=== PATIENT | male | born 1935 | race Caucasian/White ===

== ENCOUNTER 2017-06-13 17:57 | Emergency (ER) | payer MEDICARE ==
[~2017-06-13] VITALS: Ht 180.3 cm; Wt 108.9 kg
[~2017-06-13 17:57] MED LIST: ALBUTEROL0.09 MG/A2 IH; ALBUTEROL2.5 MG/0.5 INH; AMBIEN5 MG PO; AMLODIPINE BESY10 MG PO; AMOXICILLIN500 MG PO; ASMANEX220 MCG INH; ASPIRIN81 M1 PO; ATROVENT I0.5 MG/2.5 INH; AVIDOXY100 MG PO; BACTROBAN OINT22 GM PO; CEFTIN500 MG PO; CITRATE OF1.75 GM/30 PO; CRESTOR20 MG PO; DELTASONE10 MG PO; DOXYCYCLINE100 M3 PO; Duoneb 3ML 3 MG/3 ML INH; FLONASE0.05 MG/AC NS; GLYBURIDE5 MG PO; GUAFENESIN400 MG PO; KEFLEX500 MG PO; LEVAQUIN500 M2 PO; LIPITOR80 MG PO; MEDROL DOSEPAK4 MG PO; MUCINEX DM 30 M1 TE1 PO; NOVOLOG1 UNIT/0.0 SC; OMEPRAZOLE20 M1 PO; OMEPRAZOLE20 MG PO; PREDNISONE10 MG PO; PREDNISONE20 MG PO; PROVENTIL0.09 MG/A1; SIMVASTATIN20 MG PO; SPIRIVA18 MCG PO; STERAPRED DS10 MG PO; SYMBICORT1 AE1 IH; SYMBICORT1 AE1 INH; TAMSULOSIN HYD0.4 MG PO; TERAZOSIN HCL10 M1 PO; VENTOLIN 02.5 MG/3 M INH; VIBRAMYCIN100 MG PO; VICODIN 5/500 505 MG PO; ZITHROMAX Z PA250 MG PO
== END 2017-06-13 18:35 | disposition home or self-care (01) ==
LOC: ED 17:57
DX: T44.7X1A Poisoning by beta-adrenoreceptor antagonists, accidental (unintentional), initial encounter (principal); Y92.128 Other place in nursing home as the place of occurrence of the external cause; Z86.73 Personal history of transient ischemic attack (TIA), and cerebral infarction without residual deficits

== ENCOUNTER 2017-08-11 13:04 | Emergency (ER) | payer MEDICARE ==
[~2017-08-11] VITALS: Ht 180.3 cm; Wt 99.8 kg
[2017-08-11 13:16] VITALS: BP 151/60
[2017-08-11] MEDS ORDERED: DOK100 MG PO (13:53)
[2017-08-11] MEDS ORDERED: COREG12.5 M1 PO (13:53)
[2017-08-11] MEDS ORDERED: NEURONTIN300 MG PO (13:54)
[2017-08-11] MEDS ORDERED: HYDRALAZINE HC100 MG PO (13:54)
[2017-08-11] MEDS ORDERED: HUMALOG100 UNIT/2 SQ (13:55)
[2017-08-11] MEDS ORDERED: ALTACE10 MG PO (13:55)
[2017-08-11] MEDS ORDERED: CETIRIZINE HYDR10 M1 PO (13:56)
[2017-08-11] MEDS ORDERED: AMLODIPINE BESY10 MG PO (13:56)
[2017-08-11] MEDS ORDERED: CLOPIDOGREL75 MG PO (13:57)
[2017-08-11] MEDS ORDERED: LANTUS SOL100 UNIT/1 SC (13:57)
[2017-08-11] MEDS ORDERED: LEXAPRO20 MG PO (13:57)
[2017-08-11] MEDS ORDERED: XALATAN 0.005%2.5 ML OU (13:58)
[2017-08-11] MEDS ORDERED: KEPPRA250 MG PO (13:59)
[2017-08-11] MEDS ORDERED: NIFEDIPINE ER60 M1 PO (13:59)
[2017-08-11] MEDS ORDERED: CRESTOR5 MG PO (14:00)
[2017-08-11 14:19] LABS: BASO # 0.1 10*3/uL (0.0-0.1); EOS # 0.2 10*3/uL (0.0-0.4); EOS % 2.7 % (1.0-4.0); HEMATOCRIT 45.9 % (42.0-52.0); HEMOGLOBIN 15.3 g/dl (14.0-18.0); LYMPH % 12.7 % (27.0-41.0); MEAN CELL VOLUME 89.3 fl (80.0-94.0); MEAN CORPUSCULAR HGB 29.8 pg (27.0-31.0); MEAN CORPUSCULAR HGB CONC 33.3 g/dl (33.0-37.0); MEAN PLATELET VOLUME 10.6 fl (9.6-12.3); MONO # 0.5 10*3/uL (0.1-1.0); MONO % 6.5 % (3.0-9.0); NEUT % 76.8 % (47.0-73.0); PLATELET COUNT AUTOMATED 437 10*3/uL (130-400); RED BLOOD COUNT 5.14 10*6/uL (4.50-5.90); RED CELL DISTRI WIDTH 14.8 % (0-14.5); WHITE BLOOD COUNT 7.8 10*3/uL (4.8-10.8)
[2017-08-11 14:37] LABS: ALBUMIN 3.5 gm/dl (3.1-4.5); ALKALINE PHOSPHATASE 44 U/L (45-117); BUN 15 mg/dl (7-24); CHLORIDE 106 mmol/L (98-107); CREATININE 1.06 mg/dL (0.70-1.30); POTASSIUM 4.2 mmol/L (3.5-5.1); SGOT/AST 15 IU/L (3-35); SGPT/ALT 26 U/L (12-78); SODIUM 142 mmol/L (136-145); TOTAL PROTEIN 6.7 gm/dL (6.4-8.2)
[2017-08-11 14:38] LABS: TROPONIN I < 0.015 ng/ml (<0.045)
[2017-08-11 15:15] LABS: BILIRUBIN NEGATIVE (NEGATIVE); BLOOD NEGATIVE (NEGATIVE); CLARITY CLEAR (CLEAR); COLOR YELLOW (YELLOW); GLUCOSE TRACE (NEGATIVE); KETONE TRACE (NEGATIVE); LEUKO ESTERASE 1+ (NEGATIVE); NITRITE NEGATIVE (NEGATIVE); PH 5.5 (5.0-9.0); SPECIFIC GRAVITY 1.025 (1.005-1.030); UROBILINOGEN 0.2 E.U./dl (0.2-1.0)
[2017-08-11 15:33] LABS: BACTERIA 2+; EPITHELIAL CELLS 0-2; MUCOUS 1+; RBC 0-2 rbc/hpf (0-2)
[2017-08-11] MEDS ORDERED: SEPTDS PO (17:14)
== END 2017-08-11 20:36 | disposition home or self-care (01) ==
LOC: ED 13:04
PROVIDERS: Emergency Medicine
DX: N39.0 Urinary tract infection, site not specified (principal); R41.82 Altered mental status, unspecified; J44.1 Chronic obstructive pulmonary disease with (acute) exacerbation; Z79.4 Long term (current) use of insulin; Z90.49 Acquired absence of other specified parts of digestive tract

== ENCOUNTER 2017-10-10 07:18 | Emergency (ER) | payer MEDICARE ==
[~2017-10-10] VITALS: Wt 99.8 kg
[~2017-10-10 07:18] MED LIST changes: +ALTACE10 MG PO; +CETIRIZINE HYDR10 M1 PO; +CLOPIDOGREL75 MG PO; +COREG12.5 M1 PO; +CRESTOR5 MG PO; +DOK100 MG PO; +HUMALOG100 UNIT/2 SQ; +HYDRALAZINE HC100 MG PO; +KEPPRA250 MG PO; +LANTUS SOL100 UNIT/1 SC; +LEXAPRO20 MG PO; +NEURONTIN300 MG PO; +NIFEDIPINE ER60 M1 PO; +SEPTDS PO; +XALATAN 0.005%2.5 ML OU
[2017-10-10] MEDS ORDERED: COUMADIN6 M2 PO (07:29)
[2017-10-10] MEDS ORDERED: COUMADIN3 M1 PO (07:30)
[2017-10-10] MEDS ORDERED: POLYTRIM 1000010 M1 OPH (07:48)
[2017-10-10 08:08] VITALS: BP 169/80
[2017-10-10 08:13] LABS: INTERNATIONAL NORM RATIO 2.8 (2.0-3.5)
== END 2017-10-10 08:27 | disposition home or self-care (01) ==
LOC: ED 07:18
PROVIDERS: Emergency Medicine
DX: H10.33 Unspecified acute conjunctivitis, bilateral (principal); Z90.49 Acquired absence of other specified parts of digestive tract; Z86.73 Personal history of transient ischemic attack (TIA), and cerebral infarction without residual deficits; Z79.899 Other long term (current) drug therapy; Z79.01 Long term (current) use of anticoagulants; Z79.4 Long term (current) use of insulin; Z79.82 Long term (current) use of aspirin

== ENCOUNTER 2017-11-26 15:42 | Emergency (ER) | payer MEDICARE ==
[~2017-11-26 15:42] MED LIST changes: +COUMADIN3 M1 PO; +COUMADIN6 M2 PO; +POLYTRIM 1000010 M1 OPH
[2017-11-26 16:23] LABS: BILIRUBIN NEGATIVE (NEGATIVE); BLOOD NEGATIVE (NEGATIVE); CLARITY CLEAR (CLEAR); COLOR YELLOW (YELLOW); GLUCOSE NEGATIVE (NEGATIVE); KETONE TRACE (NEGATIVE); LEUKO ESTERASE 1+ (NEGATIVE); NITRITE NEGATIVE (NEGATIVE); SPECIFIC GRAVITY 1.025 (1.005-1.030); UROBILINOGEN 0.2 E.U./dl (0.2-1.0)
[2017-11-26 16:26] LABS: BASO # 0.1 10*3/uL (0.0-0.1); BASO % 0.9 % (0.0-1.0); EOS # 0.3 10*3/uL (0.0-0.4); EOS % 3.9 % (1.0-4.0); HEMATOCRIT 45.1 % (42.0-52.0); HEMOGLOBIN 15.1 g/dl (14.0-18.0); LYMPH # 1.3 10*3/uL (1.3-4.4); LYMPH % 17.3 % (27.0-41.0); MEAN CELL VOLUME 89.7 fl (80.0-94.0); MEAN CORPUSCULAR HGB CONC 33.5 g/dl (33.0-37.0); MEAN PLATELET VOLUME 10.3 fl (9.6-12.3); MONO # 0.6 10*3/uL (0.1-1.0); MONO % 7.4 % (3.0-9.0); NEUT # 5.2 10*3/uL (2.3-7.9); NEUT % 70.2 % (47.0-73.0); PLATELET COUNT AUTOMATED 465 10*3/uL (130-400); RED BLOOD COUNT 5.03 10*6/uL (4.50-5.90); RED CELL DISTRI WIDTH 14.7 % (0-14.5); WHITE BLOOD COUNT 7.4 10*3/uL (4.8-10.8)
[2017-11-26 16:29] LABS: RBC 0-2 rbc/hpf (0-2); WBC 0-2 wbc/hpf (0-5)
[2017-11-26 16:30] LABS: BACTERIA 2+; MUCOUS TRACE
[2017-11-26 16:43] LABS: ALBUMIN 3.7 gm/dl (3.1-4.5); ALKALINE PHOSPHATASE 48 U/L (45-117); BUN 12 mg/dl (7-24); CHLORIDE 107 mmol/L (98-107); CREATININE 1.21 mg/dL (0.70-1.30); POTASSIUM 4.2 mmol/L (3.5-5.1); SGOT/AST 21 IU/L (3-35); SGPT/ALT 28 U/L (12-78); SODIUM 141 mmol/L (136-145); TOTAL PROTEIN 6.7 gm/dL (6.4-8.2)
[2017-11-26 16:46] LABS: ACT PARTIAL THROMBO TIME 48.7 SECONDS (20.8-31.5)
[2017-11-26 16:47] LABS: TROPONIN I < 0.015 ng/ml (<0.045)
[2017-11-26 16:48] LABS: INTERNATIONAL NORM RATIO 6.9 (2.0-3.5)
[2017-11-26 17:45] VITALS: BP 142/60
== END 2017-11-26 18:21 | disposition home or self-care (01) ==
LOC: ED 15:42
PROVIDERS: Emergency Medicine
DX: R41.0 Disorientation, unspecified (principal); R79.1 Abnormal coagulation profile; Z90.49 Acquired absence of other specified parts of digestive tract; Z86.73 Personal history of transient ischemic attack (TIA), and cerebral infarction without residual deficits; Z79.899 Other long term (current) drug therapy; Z79.4 Long term (current) use of insulin; Z79.01 Long term (current) use of anticoagulants; Z79.82 Long term (current) use of aspirin

== ENCOUNTER 2019-06-05 15:25 | Emergency (ER) | payer MEDICARE ==
[~2019-06-05] VITALS: Ht 182.8 cm; Wt 104.3 kg
--- NOTE | ~2019-06-05 | EKG ---
[place], [place] ELECTROCARDIOGRAM REPORT NAME: RANDY WOODARD UNIT #: [id number] ROOM: DOCTOR: EPIPHANY DRAFT REPORT BIRTHDATE: [birth year] [facility] Test Date: 2019-06-05 Test Time: 15:24:11 Pat Name: RANDY WOODARD Department: Room: Gender: [employer]ician: : [id number] Requested By: EDE DREW PA-C Order Number: [id number] Reading MD: Kristina Doty Measurements Intervals [place] Rate: 70 P: 8 VT: 282 QRS: -97 QRSD: 143 T: 17 QT: 406 QTc: 439 Interpretive Statements Sinus rhythm Prolonged VT interval RBBB and LAFB Compared to ECG 01/04/2019 23:03:06 Atrial premature complex(es) no longer present Electronically Signed On 06-09-2019 11:33:18 PST by Kristina Doty CM:EKGRPT:ELECTROCARDIOGRAM REPORT [id number] EDE DREW PA-C EPIPHANY DRAFT REPORT EDE DREW PA-C
[~2019-06-05 15:25] MED LIST changes: -Duoneb 3ML 3 MG/3 ML INH; +EXELON1 EAC1 T; +Ipratropium Brom3 ML INH; +LIPITOR20 MG PO; +NOVOLOG FL100 UNIT/2 SC; +PRESERVISION A1 EAC2 PO; +VITAMIN D-32000 UNIT PO; +VITAMIN D31000 UNI1 PO
[2019-06-05 15:34] VITALS: BP 177/90
[2019-06-05 16:02] LABS: HEMOGLOBIN 15.2 g/dl (14.0-18.0); MEAN CELL VOLUME 77.8 fl (80.0-94.0); MEAN CORPUSCULAR HGB 24.1 pg (27.0-31.0); MEAN PLATELET VOLUME 10.5 fl (9.6-12.3); PLATELET COUNT AUTOMATED 537 10*3/uL (130-400); RED CELL DISTRI WIDTH 20.5 % (0-14.5); WHITE BLOOD COUNT 7.3 10*3/uL (4.8-10.8)
[2019-06-05 16:11] LABS: INTERNATIONAL NORM RATIO 2.5 (2.0-3.5)
[2019-06-05 16:19] LABS: ALBUMIN 3.6 gm/dl (3.1-4.5); ALKALINE PHOSPHATASE 63 U/L (45-117); BUN 16 mg/dl (7-24); CHLORIDE 108 mmol/L (98-107); CREATININE 1.23 mg/dL (0.70-1.30); POTASSIUM 4.6 mmol/L (3.5-5.1); SGOT/AST 16 IU/L (3-35); SODIUM 143 mmol/L (136-145); TOTAL PROTEIN 7.1 gm/dL (6.4-8.2)
[2019-06-05 16:24] LABS: SGPT/ALT 28 U/L (12-78)
[2019-06-05 16:25] LABS: TROPONIN I < 0.015 ng/ml (<0.045)
[2019-06-05 16:47] LABS: BURR CELLS FEW; MICROCYTOSIS SLIGHT; OVALOCYTES MODERATE; PLATELET SUFFICIENCY HIGH (NORMAL); TOTAL CELLS COUNTED 100 #CELLS
== END 2019-06-05 17:41 | disposition home or self-care (01) ==
LOC: ED 15:25
PROVIDERS: Physician Assistant
DX: R41.0 Disorientation, unspecified (principal); R41.3 Other amnesia; J44.9 Chronic obstructive pulmonary disease, unspecified; E78.00 Pure hypercholesterolemia, unspecified; I10 Essential (primary) hypertension; E11.9 Type 2 diabetes mellitus without complications; Z86.73 Personal history of transient ischemic attack (TIA), and cerebral infarction without residual deficits; Z79.899 Other long term (current) drug therapy; Z90.49 Acquired absence of other specified parts of digestive tract; Z87.891 Personal history of nicotine dependence

== ENCOUNTER 2019-06-19 18:36 | Emergency (ER) | payer MEDICARE ==
[~2019-06-19] VITALS: Ht 180.3 cm; Wt 103.0 kg
[2019-06-19 18:40] VITALS: BP 167/72
[2019-06-19 19:39] LABS: BASO # 0.1 10*3/uL (0.0-0.1); BASO % 1.3 % (0.0-1.0); EOS # 0.3 10*3/uL (0.0-0.4); HEMATOCRIT 49.8 % (42.0-52.0); HEMOGLOBIN 14.9 g/dl (14.0-18.0); LYMPH # 1.5 10*3/uL (1.3-4.4); LYMPH % 17.7 % (27.0-41.0); MEAN CELL VOLUME 80.6 fl (80.0-94.0); MEAN CORPUSCULAR HGB 24.1 pg (27.0-31.0); MEAN CORPUSCULAR HGB CONC 29.9 g/dl (33.0-37.0); MEAN PLATELET VOLUME 10.3 fl (9.6-12.3); MONO # 0.6 10*3/uL (0.1-1.0); MONO % 7.3 % (3.0-9.0); NEUT # 5.9 10*3/uL (2.3-7.9); NEUT % 70.5 % (47.0-73.0); PLATELET COUNT AUTOMATED 598 10*3/uL (130-400); RED BLOOD COUNT 6.18 10*6/uL (4.50-5.90); RED CELL DISTRI WIDTH 21.2 % (0-14.5); WHITE BLOOD COUNT 8.3 10*3/uL (4.8-10.8)
[2019-06-19 19:55] LABS: ALBUMIN 3.5 gm/dl (3.1-4.5); ALKALINE PHOSPHATASE 68 U/L (45-117); BUN 19 mg/dl (7-24); CHLORIDE 107 mmol/L (98-107); CREATININE 1.36 mg/dL (0.70-1.30); POTASSIUM 4.6 mmol/L (3.5-5.1); SGOT/AST 19 IU/L (3-35); SGPT/ALT 27 U/L (12-78); SODIUM 142 mmol/L (136-145); TOTAL PROTEIN 6.9 gm/dL (6.4-8.2)
[2019-06-19] MEDS ORDERED: CEFADROXIL500 M1 PO (21:48)
== END 2019-06-19 21:57 | disposition other institution (70) ==
LOC: ED 18:36
PROVIDERS: Physician Assistant
DX: M79.671 Pain in right foot (principal); E11.9 Type 2 diabetes mellitus without complications; Z79.899 Other long term (current) drug therapy; Z87.891 Personal history of nicotine dependence; J44.9 Chronic obstructive pulmonary disease, unspecified; E78.00 Pure hypercholesterolemia, unspecified; I10 Essential (primary) hypertension; Z86.73 Personal history of transient ischemic attack (TIA), and cerebral infarction without residual deficits

== ENCOUNTER → 2020-03-12 | Outpatient (CLI) | payer MEDICARE ==
[~2020-03-12] MED LIST changes: +CEFADROXIL500 M1 PO; +Coumadin3 MG PO; +DONEPEZIL HYDROC5 M1 PO; +MEMANTINE HCL5 MG PO; +NORCO 5-325 TA1 EACH PO; +SYMB160 INH; +TUSSIN100 MG/51 PO; +WARFARIN SODIUM6 MG PO
== END | disposition home or self-care (01) ==
LOC: COVID19 00:57
PROVIDERS: ATTEND Surgery
DX: Z01.812 Encounter for preprocedural laboratory examination (principal); Z20.828 Contact with and (suspected) exposure to other viral communicable diseases

== ENCOUNTER → 2020-03-17 | Day surgery (SDC) | payer MEDICARE ==
[~2020-03-17] VITALS: Wt 100.2 kg
[2020-03-17 08:19] VITALS: BP 191/88
[2020-03-17 09:33] VITALS: BP 159/78
[2020-03-17 09:45] VITALS: BP 168/75
[2020-03-17 10:05] VITALS: BP 160/70
== END | disposition home or self-care (01) ==
LOC: SDC 03-13 09:30
PROVIDERS: ATTEND Surgery
DX: D48.5 Neoplasm of uncertain behavior of skin (principal); L72.0 Epidermal cyst; J44.9 Chronic obstructive pulmonary disease, unspecified; I11.0 Hypertensive heart disease with heart failure; I50.9 Heart failure, unspecified; E11.9 Type 2 diabetes mellitus without complications; Z98.890 Other specified postprocedural states; Z79.899 Other long term (current) drug therapy

== ENCOUNTER 2020-11-02 12:13 | Inpatient (IN) | payer MEDICARE ==
[2020-11-02] VITALS (8 sets, daily range): BP systolic 148–177; BP diastolic 53–88
[~2020-11-02] VITALS: Ht 180.3 cm; Wt 97.3 kg
[~2020-11-02 12:13] MED LIST changes: +VITAMIN D325 MCG PO
[2020-11-02 13:34] LABS: BASO # 0.1 10*3/uL (0.0-0.1); BASO % 1.1 % (0.0-1.0); EOS # 0.3 10*3/uL (0.0-0.4); EOS % 3.7 % (1.0-4.0); HEMATOCRIT 43.9 % (42.0-52.0); LYMPH # 1.1 10*3/uL (1.3-4.4); LYMPH % 12.8 % (27.0-41.0); MEAN CELL VOLUME 85.6 fl (80.0-94.0); MEAN CORPUSCULAR HGB 27.5 pg (27.0-31.0); MEAN CORPUSCULAR HGB CONC 32.1 g/dl (33.0-37.0); MEAN PLATELET VOLUME 9.9 fl (9.6-12.3); MONO # 0.6 10*3/uL (0.1-1.0); MONO % 7.7 % (3.0-9.0); NEUT # 6.2 10*3/uL (2.3-7.9); NEUT % 74.5 % (47.0-73.0); PLATELET COUNT AUTOMATED 611 10*3/uL (130-400); RED BLOOD COUNT 5.13 10*6/uL (4.50-5.90); WHITE BLOOD COUNT 8.3 10*3/uL (4.8-10.8)
[2020-11-02 13:44] LABS: ACT PARTIAL THROMBO TIME 35.6 SECONDS (20.0-32.1)
[2020-11-02 13:50] LABS: ALKALINE PHOSPHATASE 64 U/L (45-117); BUN 21 mg/dl (7-24); CHLORIDE 111 mmol/L (98-107); CREATININE 1.05 mg/dL (0.70-1.30); LIPASE 128 U/L (73-393); POTASSIUM 4.5 mmol/L (3.5-5.1); SGOT/AST 16 IU/L (3-35); SGPT/ALT 22 U/L (12-78); SODIUM 141 mmol/L (136-145); TOTAL PROTEIN 6.3 gm/dL (6.4-8.2)
[2020-11-02 13:52] LABS: TROPONIN I < 0.015 ng/ml (<0.045)
[2020-11-02] MEDS ORDERED: LANTUS SOL100 UNIT/1 SC (17:44)
[2020-11-02] MEDS ORDERED: PRILOSEC20 M1 PO (17:47)
[2020-11-02] MEDS ORDERED: PRESERVISION A1 EAC2 PO (17:49)
[2020-11-02 21:57] LABS: BILIRUBIN Negative (Negative); BLOOD Negative (Negative); CLARITY Clear (Clear); COLOR Yellow (Yellow); GLUCOSE 3+ (Negative); KETONE Negative (Negative); LEUKO ESTERASE 1+ (Negative); NITRITE Negative (Negative); SPECIFIC GRAVITY 1.025 (1.001-1.030)
[2020-11-02 22:03] LABS: EPITHELIAL CELLS 16-20; WBC 16-20 wbc/hpf (0-5)
[2020-11-02 22:04] LABS: BACTERIA TRACE
[2020-11-03] VITALS: BP 168/59
[2020-11-03 04:00] VITALS: BP 175/71
[2020-11-03 06:26] LABS: BASO # 0.1 10*3/uL (0.0-0.1); BASO % 1.5 % (0.0-1.0); EOS # 0.3 10*3/uL (0.0-0.4); EOS % 3.6 % (1.0-4.0); HEMATOCRIT 43.5 % (42.0-52.0); LYMPH % 12.7 % (27.0-41.0); MEAN CELL VOLUME 86.3 fl (80.0-94.0); MEAN CORPUSCULAR HGB CONC 31.3 g/dl (33.0-37.0); MEAN PLATELET VOLUME 10.3 fl (9.6-12.3); MONO # 0.7 10*3/uL (0.1-1.0); MONO % 8.6 % (3.0-9.0); NEUT # 5.8 10*3/uL (2.3-7.9); NEUT % 73.5 % (47.0-73.0); PLATELET COUNT AUTOMATED 636 10*3/uL (130-400); RED BLOOD COUNT 5.04 10*6/uL (4.50-5.90); RED CELL DISTRI WIDTH 17.7 % (0-14.5); WHITE BLOOD COUNT 7.9 10*3/uL (4.8-10.8)
[2020-11-03 06:36] LABS: INTERNATIONAL NORM RATIO 1.6 (2.0-3.5)
[2020-11-03 06:57] LABS: BUN 20 mg/dl (7-24); CHLORIDE 109 mmol/L (98-107); CREATININE 0.98 mg/dL (0.70-1.30); POTASSIUM 3.8 mmol/L (3.5-5.1); SODIUM 142 mmol/L (136-145)
[2020-11-03 08:00] VITALS: BP 192/88
[2020-11-03 16:00] VITALS: BP 146/82
[2020-11-03 20:27] VITALS: BP 177/79
[2020-11-04 00:11] VITALS: BP 152/98
[2020-11-04 06:23] LABS: HEMATOCRIT 45.1 % (42.0-52.0)
[2020-11-04] MEDS ORDERED: TOPROL XL25 MG PO (08:29)
[2020-11-04 09:30] VITALS: BP 210/90
[2020-11-04 11:03] VITALS: BP 160/68
== END 2020-11-04 13:48 | DRG 379 ==
LOC: ED 12:13 → EDHOLD 15:47 → 5E 15:47
PROVIDERS: Internal Medicine Gastroenterology; Nurse Practitioner Family; ADMIT Internal Medicine; ATTEND Internal Medicine
PROC: 30233K1 Transfusion of Nonautologous Frozen Plasma into Peripheral Vein, Percutaneous Approach (ICD-10-PCS; principal; 2020-11-02)
DX: K62.5 Hemorrhage of anus and rectum (principal); I48.91 Unspecified atrial fibrillation; F03.90 Unspecified dementia, unspecified severity, without behavioral disturbance, psychotic disturbance, mood disturbance, and anxiety; Z86.73 Personal history of transient ischemic attack (TIA), and cerebral infarction without residual deficits; J44.9 Chronic obstructive pulmonary disease, unspecified; I10 Essential (primary) hypertension; E78.2 Mixed hyperlipidemia; K21.9 Gastro-esophageal reflux disease without esophagitis; Z88.8 Allergy status to other drugs, medicaments and biological substances; Z79.899 Other long term (current) drug therapy; Z90.49 Acquired absence of other specified parts of digestive tract; L89.152 Pressure ulcer of sacral region, stage 2

== ENCOUNTER 2020-11-21 00:59 | Emergency (ER) | payer MEDICARE ==
[~2020-11-21] VITALS: Wt 95.3 kg
[~2020-11-21 00:59] MED LIST changes: +PRILOSEC20 M1 PO; +TOPROL XL25 MG PO
[2020-11-21 01:27] LABS: BASO # 0.1 10*3/uL (0.0-0.1); BASO % 0.8 % (0.0-1.0); EOS # 0.3 10*3/uL (0.0-0.4); EOS % 2.6 % (1.0-4.0); LYMPH # 0.9 10*3/uL (1.3-4.4); LYMPH % 6.6 % (27.0-41.0); MEAN CELL VOLUME 87.9 fl (80.0-94.0); MEAN CORPUSCULAR HGB 27.6 pg (27.0-31.0); MEAN CORPUSCULAR HGB CONC 31.4 g/dl (33.0-37.0); MEAN PLATELET VOLUME 10.5 fl (9.6-12.3); MONO # 0.8 10*3/uL (0.1-1.0); MONO % 6.3 % (3.0-9.0); NEUT # 10.8 10*3/uL (2.3-7.9); NEUT % 83.2 % (47.0-73.0); PLATELET COUNT AUTOMATED 816 10*3/uL (130-400); RED BLOOD COUNT 5.69 10*6/uL (4.50-5.90); RED CELL DISTRI WIDTH 17.1 % (0-14.5)
[2020-11-21 01:45] LABS: ACT PARTIAL THROMBO TIME 26.8 SECONDS (20.0-32.1); ALBUMIN 3.5 gm/dl (3.1-4.5); ALKALINE PHOSPHATASE 682 U/L (45-117); BUN 16 mg/dl (7-24); CHLORIDE 104 mmol/L (98-107); CREATININE 1.38 mg/dL (0.70-1.30); INTERNATIONAL NORM RATIO 1.1 (2.0-3.5); POTASSIUM 4.6 mmol/L (3.5-5.1); SGOT/AST 165 IU/L (3-35); SGPT/ALT 173 U/L (12-78); SODIUM 138 mmol/L (136-145); TOTAL PROTEIN 7.5 gm/dL (6.4-8.2)
[2020-11-21 01:46] LABS: TROPONIN I < 0.015 ng/ml (<0.045)
[2020-11-21 02:08] VITALS: BP 175/78
== END 2020-11-21 05:30 ==
LOC: ED 00:59
PROVIDERS: Emergency Medicine
DX: R07.9 Chest pain, unspecified (principal); J44.9 Chronic obstructive pulmonary disease, unspecified; E11.9 Type 2 diabetes mellitus without complications; K21.9 Gastro-esophageal reflux disease without esophagitis; I10 Essential (primary) hypertension; Z88.8 Allergy status to other drugs, medicaments and biological substances; Z79.899 Other long term (current) drug therapy; Z90.49 Acquired absence of other specified parts of digestive tract; Z98.890 Other specified postprocedural states

== ENCOUNTER 2021-04-15 14:02 | Inpatient (IN) | payer MEDICARE ==
[~2021-04-15] VITALS: Ht 172.7 cm; Wt 89.1 kg
[2021-04-15 14:07] VITALS: BP 164/67
[2021-04-15 15:01] LABS: ACT PARTIAL THROMBO TIME 36.5 SECONDS (20.0-32.1); INTERNATIONAL NORM RATIO 1.1 (2.0-3.5)
[2021-04-15 15:08] LABS: BASO % 0.3 % (0.0-1.0); EOS # 0.1 10*3/uL (0.0-0.4); HEMATOCRIT 52.4 % (42.0-52.0); LYMPH # 0.9 10*3/uL (1.3-4.4); LYMPH % 15.5 % (27.0-41.0); MEAN CELL VOLUME 82.9 fl (80.0-94.0); MEAN CORPUSCULAR HGB 25.6 pg (27.0-31.0); MEAN CORPUSCULAR HGB CONC 30.9 g/dl (33.0-37.0); MEAN PLATELET VOLUME 10.8 fl (9.6-12.3); MONO # 0.5 10*3/uL (0.1-1.0); MONO % 7.9 % (3.0-9.0); NEUT # 4.4 10*3/uL (2.3-7.9); PLATELET COUNT AUTOMATED 347 10*3/uL (130-400); RED BLOOD COUNT 6.32 10*6/uL (4.50-5.90); RED CELL DISTRI WIDTH 15.5 % (0-14.5); WHITE BLOOD COUNT 5.9 10*3/uL (4.8-10.8)
[2021-04-15 15:17] VITALS: BP 143/56
[2021-04-15 15:26] LABS: ALBUMIN 2.8 gm/dl (3.1-4.5); CREATININE 1.37 mg/dL (0.70-1.30); POTASSIUM 3.9 mmol/L (3.5-5.1); TROPONIN I 0.035 ng/ml (<0.045)
[2021-04-15 16:18] LABS: BILIRUBIN Negative (Negative); BLOOD Negative (Negative); CLARITY Clear (Clear); COLOR Dark Yellow (Yellow); GLUCOSE Negative (Negative); KETONE Trace (Negative); LEUKO ESTERASE 2+ (Negative); NITRITE Negative (Negative); UROBILINOGEN 0.2 E.U./dl (0.0-1.0)
[2021-04-15 16:33] VITALS: BP 165/69
[2021-04-15 16:36] LABS: BACTERIA 1+; WBC 51-100 wbc/hpf (0-5)
[2021-04-16 20:00] VITALS: BP 153/56
[2021-04-17] VITALS: BP 162/59
[2021-04-17 06:45] LABS: BASO % 0.4 % (0.0-1.0); EOS # 0.1 10*3/uL (0.0-0.4); EOS % 1.1 % (1.0-4.0); HEMATOCRIT 49.4 % (42.0-52.0); LYMPH # 1.3 10*3/uL (1.3-4.4); LYMPH % 17.2 % (27.0-41.0); MEAN CELL VOLUME 81.8 fl (80.0-94.0); MEAN CORPUSCULAR HGB 25.2 pg (27.0-31.0); MEAN CORPUSCULAR HGB CONC 30.8 g/dl (33.0-37.0); MEAN PLATELET VOLUME 10.4 fl (9.6-12.3); MONO # 0.5 10*3/uL (0.1-1.0); NEUT # 5.6 10*3/uL (2.3-7.9); NEUT % 73.8 % (47.0-73.0); PLATELET COUNT AUTOMATED 417 10*3/uL (130-400); RED BLOOD COUNT 6.04 10*6/uL (4.50-5.90); RED CELL DISTRI WIDTH 15.1 % (0-14.5); WHITE BLOOD COUNT 7.6 10*3/uL (4.8-10.8)
[2021-04-17 06:59] LABS: ALBUMIN 2.7 gm/dl (3.1-4.5); ALKALINE PHOSPHATASE 52 U/L (45-117); BUN 18 mg/dl (7-24); CHLORIDE 108 mmol/L (98-107); CREATININE 1.13 mg/dL (0.70-1.30); LDH 250 U/L (87-241); POTASSIUM 3.7 mmol/L (3.5-5.1); SGOT/AST 29 IU/L (3-35); SGPT/ALT 21 U/L (12-78); SODIUM 139 mmol/L (136-145); TOTAL PROTEIN 6.4 gm/dL (6.4-8.2)
[2021-04-17 08:00] VITALS: BP 155/70
[2021-04-17 12:00] VITALS: BP 145/61
[2021-04-17 16:00] VITALS: BP 154/78
[2021-04-17 20:00] VITALS: BP 152/71
[2021-04-18 08:00] VITALS: BP 170/67
[2021-04-18 08:28] LABS: BASO % 0.4 % (0.0-1.0); EOS # 0.1 10*3/uL (0.0-0.4); EOS % 0.8 % (1.0-4.0); HEMATOCRIT 52.4 % (42.0-52.0); LYMPH # 1.4 10*3/uL (1.3-4.4); LYMPH % 16.4 % (27.0-41.0); MEAN CORPUSCULAR HGB 25.2 pg (27.0-31.0); MEAN CORPUSCULAR HGB CONC 30.3 g/dl (33.0-37.0); MEAN PLATELET VOLUME 10.1 fl (9.6-12.3); MONO # 0.4 10*3/uL (0.1-1.0); MONO % 5.2 % (3.0-9.0); NEUT # 6.6 10*3/uL (2.3-7.9); NEUT % 76.8 % (47.0-73.0); PLATELET COUNT AUTOMATED 442 10*3/uL (130-400); RED BLOOD COUNT 6.31 10*6/uL (4.50-5.90); RED CELL DISTRI WIDTH 15.3 % (0-14.5); WHITE BLOOD COUNT 8.5 10*3/uL (4.8-10.8)
[2021-04-18 08:38] LABS: ALBUMIN 2.7 gm/dl (3.1-4.5); ALKALINE PHOSPHATASE 54 U/L (45-117); BUN 18 mg/dl (7-24); CHLORIDE 107 mmol/L (98-107); LDH 268 U/L (87-241); POTASSIUM 3.7 mmol/L (3.5-5.1); SGOT/AST 29 IU/L (3-35); SGPT/ALT 23 U/L (12-78); SODIUM 140 mmol/L (136-145)
[2021-04-18 12:00] VITALS: BP 142/57
[2021-04-18 16:00] VITALS: BP 152/72
[2021-04-18 20:00] VITALS: BP 156/73
[2021-04-19] VITALS: BP 158/61
[2021-04-19 06:59] LABS: BASO % 0.2 % (0.0-1.0); LYMPH # 0.5 10*3/uL (1.3-4.4); LYMPH % 7.9 % (27.0-41.0); MEAN CORPUSCULAR HGB 25.1 pg (27.0-31.0); MEAN CORPUSCULAR HGB CONC 30.6 g/dl (33.0-37.0); MEAN PLATELET VOLUME 11.3 fl (9.6-12.3); MONO # 0.2 10*3/uL (0.1-1.0); MONO % 2.7 % (3.0-9.0); NEUT # 5.6 10*3/uL (2.3-7.9); NEUT % 88.7 % (47.0-73.0); PLATELET COUNT AUTOMATED 444 10*3/uL (130-400); RED CELL DISTRI WIDTH 15.1 % (0-14.5); WHITE BLOOD COUNT 6.3 10*3/uL (4.8-10.8)
[2021-04-19 07:17] LABS: ALBUMIN 2.3 gm/dl (3.1-4.5); ALKALINE PHOSPHATASE 53 U/L (45-117); BUN 24 mg/dl (7-24); CHLORIDE 107 mmol/L (98-107); CREATININE 1.09 mg/dL (0.70-1.30); POTASSIUM 4.4 mmol/L (3.5-5.1); SGOT/AST 28 IU/L (3-35); SGPT/ALT 24 U/L (12-78); SODIUM 138 mmol/L (136-145); TOTAL PROTEIN 6.6 gm/dL (6.4-8.2)
[2021-04-19 08:00] VITALS: BP 164/74
[2021-04-19 12:00] VITALS: BP 157/56
[2021-04-19 16:00] VITALS: BP 164/74
[2021-04-19 20:00] VITALS: BP 158/64
[2021-04-20 07:58] VITALS: BP 188/84
[2021-04-20 12:00] VITALS: BP 174/73
[2021-04-20 16:00] VITALS: BP 147/73
[2021-04-21 08:00] VITALS: BP 177/93
[2021-04-21 08:08] LABS: HEMATOCRIT 52.9 % (42.0-52.0); MEAN CELL VOLUME 80.4 fl (80.0-94.0); MEAN CORPUSCULAR HGB 25.4 pg (27.0-31.0); MEAN CORPUSCULAR HGB CONC 31.6 g/dl (33.0-37.0); MEAN PLATELET VOLUME 11.3 fl (9.6-12.3); PLATELET COUNT AUTOMATED 547 10*3/uL (130-400); RED BLOOD COUNT 6.58 10*6/uL (4.50-5.90); RED CELL DISTRI WIDTH 15.4 % (0-14.5); WHITE BLOOD COUNT 10.8 10*3/uL (4.8-10.8)
[2021-04-21 08:34] LABS: ALBUMIN 2.9 gm/dl (3.1-4.5); BUN 33 mg/dl (7-24); CHLORIDE 107 mmol/L (98-107); POTASSIUM 4.4 mmol/L (3.5-5.1); SODIUM 138 mmol/L (136-145); TOTAL PROTEIN 7.1 gm/dL (6.4-8.2)
[2021-04-21 08:35] LABS: ALKALINE PHOSPHATASE 70 U/L (45-117); SGOT/AST 27 IU/L (3-35); SGPT/ALT 31 U/L (12-78)
[2021-04-21 08:46] LABS: PLATELET SUFFICIENCY HIGH (NORMAL); TOTAL CELLS COUNTED 100 #CELLS
[2021-04-21 12:00] VITALS: BP 145/78
[2021-04-21 16:00] VITALS: BP 145/78
[2021-04-21 20:00] VITALS: BP 160/85
[2021-04-22] VITALS: BP 164/85
[2021-04-22 08:00] VITALS: BP 164/98
[2021-04-22 08:28] LABS: HEMATOCRIT 49.7 % (42.0-52.0); MEAN CELL VOLUME 79.8 fl (80.0-94.0); MEAN CORPUSCULAR HGB 25.2 pg (27.0-31.0); MEAN CORPUSCULAR HGB CONC 31.6 g/dl (33.0-37.0); MEAN PLATELET VOLUME 10.7 fl (9.6-12.3); PLATELET COUNT AUTOMATED 546 10*3/uL (130-400); RED BLOOD COUNT 6.23 10*6/uL (4.50-5.90); WHITE BLOOD COUNT 10.6 10*3/uL (4.8-10.8)
[2021-04-22 08:45] LABS: ALKALINE PHOSPHATASE 64 U/L (45-117); BUN 30 mg/dl (7-24); CHLORIDE 106 mmol/L (98-107); CREATININE 1.08 mg/dL (0.70-1.30); SGOT/AST 27 IU/L (3-35); SGPT/ALT 27 U/L (12-78); SODIUM 142 mmol/L (136-145); TOTAL PROTEIN 6.8 gm/dL (6.4-8.2)
[2021-04-22 09:29] LABS: PLATELET SUFFICIENCY HIGH (NORMAL); TOTAL CELLS COUNTED 100 #CELLS
== END 2021-04-22 12:29 | DRG 177 ==
LOC: ED 14:02 → EDHOLD 18:30 → 4E 18:30 → EDHOLD 04-16 08:18 → 4E 04-16 16:01
PROVIDERS: Emergency Medicine; Internal Medicine Critical Care Medicine; ADMIT Internal Medicine; ATTEND Internal Medicine
PROC: XW033E5 Introduction of Remdesivir Anti-infective into Peripheral Vein, Percutaneous Approach, New Technology Group 5 (ICD-10-PCS; principal; 2021-04-18)
DX: U07.1 COVID-19 (principal); J12.82 Pneumonia due to coronavirus disease 2019; J96.01 Acute respiratory failure with hypoxia; G93.41 Metabolic encephalopathy; I48.21 Permanent atrial fibrillation; J44.0 Chronic obstructive pulmonary disease with (acute) lower respiratory infection; I48.91 Unspecified atrial fibrillation; I10 Essential (primary) hypertension; E78.2 Mixed hyperlipidemia; E11.65 Type 2 diabetes mellitus with hyperglycemia; R91.8 Other nonspecific abnormal finding of lung field; F01.50 Vascular dementia, unspecified severity, without behavioral disturbance, psychotic disturbance, mood disturbance, and anxiety; R62.7 Adult failure to thrive; R91.1 Solitary pulmonary nodule; J45.909 Unspecified asthma, uncomplicated; M89.58 Osteolysis, other site; Z90.49 Acquired absence of other specified parts of digestive tract; Z86.73 Personal history of transient ischemic attack (TIA), and cerebral infarction without residual deficits; Z88.8 Allergy status to other drugs, medicaments and biological substances; Z79.4 Long term (current) use of insulin; Z87.891 Personal history of nicotine dependence

== ENCOUNTER 2021-07-14 01:16 | Emergency (ER) | payer MEDICARE ==
[2021-07-14 01:45] LABS: HEMATOCRIT 47.3 % (42.0-52.0); MEAN CELL VOLUME 79.9 fl (80.0-94.0); MEAN PLATELET VOLUME 10.5 fl (9.6-12.3); PLATELET COUNT AUTOMATED 524 10*3/uL (130-400); RED BLOOD COUNT 5.92 10*6/uL (4.50-5.90); RED CELL DISTRI WIDTH 19.3 % (0-14.5); WHITE BLOOD COUNT 9.9 10*3/uL (4.8-10.8)
[2021-07-14 02:02] LABS: ALKALINE PHOSPHATASE 107 U/L (45-117); BUN 22 mg/dl (7-24); CHLORIDE 112 mmol/L (98-107); CREATININE 1.19 mg/dL (0.70-1.30); POTASSIUM 4.3 mmol/L (3.5-5.1); SGOT/AST 26 IU/L (3-35); SGPT/ALT 30 U/L (12-78); SODIUM 142 mmol/L (136-145); TOTAL PROTEIN 6.8 gm/dL (6.4-8.2)
[2021-07-14 02:05] LABS: BASOPHILS 2 % (0-1); PLATELET SUFFICIENCY HIGH (NORMAL); TOTAL CELLS COUNTED 100 #CELLS
[2021-07-14 02:07] VITALS: BP 200/86
[2021-07-14] MEDS ORDERED: LEVOFLOXACIN750 M2 PO ×2 (02:21)
== END 2021-07-14 03:38 | disposition home or self-care (01) ==
LOC: ED 01:16
PROVIDERS: Internal Medicine
DX: R06.00 Dyspnea, unspecified (principal); E88.09 Other disorders of plasma-protein metabolism, not elsewhere classified; E11.65 Type 2 diabetes mellitus with hyperglycemia; I10 Essential (primary) hypertension

== ENCOUNTER 2021-07-18 13:37 | Inpatient (IN) | payer MEDICARE ==
[~2021-07-18] VITALS: Ht 182.9 cm; Wt 93.0 kg
[~2021-07-18 13:37] MED LIST changes: +LEVOFLOXACIN750 M2 PO
[2021-07-18 13:39] VITALS: BP 165/58
[2021-07-18 14:12] LABS: BASO # 0.2 10*3/uL (0.0-0.1); BASO % 1.5 % (0.0-1.0); EOS # 0.4 10*3/uL (0.0-0.4); EOS % 4.1 % (1.0-4.0); LYMPH # 1.4 10*3/uL (1.3-4.4); LYMPH % 13.9 % (27.0-41.0); MEAN CORPUSCULAR HGB 24.1 pg (27.0-31.0); MEAN CORPUSCULAR HGB CONC 30.9 g/dl (33.0-37.0); MEAN PLATELET VOLUME 10.5 fl (9.6-12.3); MONO # 0.6 10*3/uL (0.1-1.0); MONO % 6.5 % (3.0-9.0); NEUT # 7.2 10*3/uL (2.3-7.9); NEUT % 72.6 % (47.0-73.0); PLATELET COUNT AUTOMATED 542 10*3/uL (130-400); RED BLOOD COUNT 5.64 10*6/uL (4.50-5.90); WHITE BLOOD COUNT 9.9 10*3/uL (4.8-10.8)
[2021-07-18 14:22] LABS: ACT PARTIAL THROMBO TIME 31.3 SECONDS (20.0-32.1); INTERNATIONAL NORM RATIO 1.1 (2.0-3.5)
[2021-07-18 14:37] LABS: ALBUMIN 2.9 gm/dl (3.1-4.5); BUN 20 mg/dl (7-24); CHLORIDE 110 mmol/L (98-107); CREATININE 1.01 mg/dL (0.70-1.30); SGOT/AST 18 IU/L (3-35); SGPT/ALT 20 U/L (12-78); SODIUM 143 mmol/L (136-145); TOTAL PROTEIN 6.5 gm/dL (6.4-8.2)
[2021-07-18 14:38] LABS: ALKALINE PHOSPHATASE 93 U/L (45-117); CPK 39 U/L (39-308)
[2021-07-18 16:06] LABS: BILIRUBIN Negative (Negative); BLOOD Negative (Negative); CLARITY Clear (Clear); COLOR Yellow (Yellow); GLUCOSE Negative (Negative); KETONE Negative (Negative); LEUKO ESTERASE Negative (Negative); NITRITE Negative (Negative); PH 5.5 (4.5-8.0)
[2021-07-18 16:44] LABS: BACTERIA TRACE
[2021-07-18 20:50] VITALS: BP 164/54
[2021-07-19] VITALS: BP 175/71
[2021-07-19 07:29] LABS: BUN 19 mg/dl (7-24); CHLORIDE 106 mmol/L (98-107); CREATININE 1.11 mg/dL (0.70-1.30); POTASSIUM 3.6 mmol/L (3.5-5.1); SODIUM 142 mmol/L (136-145)
[2021-07-19 08:00] VITALS: BP 170/71
[2021-07-19 12:00] VITALS: BP 162/60
[2021-07-19 20:00] VITALS: BP 137/52
[2021-07-20] VITALS: BP 168/63
[2021-07-20 08:00] VITALS: BP 143/58
[2021-07-20 12:00] VITALS: BP 151/53
[2021-07-20 16:00] VITALS: BP 134/48
[2021-07-20 20:00] VITALS: BP 156/61
[2021-07-21] VITALS: BP 164/64
[2021-07-21 08:00] VITALS: BP 129/52
[2021-07-21] MEDS ORDERED: LASIX20 MG PO (10:05)
[2021-07-21] MEDS ORDERED: KLOR-CON 1010 ME1 PO (10:05)
== END 2021-07-21 14:48 | DRG 291 ==
LOC: ED 13:37 → 5E 17:49 → EDHOLD 17:49 → 5E 18:35
PROVIDERS: Emergency Medicine; ADMIT Internal Medicine; ATTEND Internal Medicine
DX: I11.0 Hypertensive heart disease with heart failure (principal); I50.43 Acute on chronic combined systolic (congestive) and diastolic (congestive) heart failure; E46 Unspecified protein-calorie malnutrition; E11.8 Type 2 diabetes mellitus with unspecified complications; G30.1 Alzheimer's disease with late onset; F02.80 Dementia in other diseases classified elsewhere, unspecified severity, without behavioral disturbance, psychotic disturbance, mood disturbance, and anxiety; K21.00 Gastro-esophageal reflux disease with esophagitis, without bleeding; E78.2 Mixed hyperlipidemia; K59.09 Other constipation; J44.9 Chronic obstructive pulmonary disease, unspecified; Z86.73 Personal history of transient ischemic attack (TIA), and cerebral infarction without residual deficits; Z90.49 Acquired absence of other specified parts of digestive tract; Z88.8 Allergy status to other drugs, medicaments and biological substances; Z68.28 Body mass index [BMI] 28.0-28.9, adult